=== PATIENT | female | born 1960 | race Caucasian/White ===

== ENCOUNTER 2020-08-22 07:47 | Outpatient (CLI) | payer BC, SELFPAY ==
--- NOTE | 2020-08-22 | ECHO_ITS ---
Patient Info Name: Rachel Montoya Age: 60 years : 1960 Gender: Female Ht: 58 in Wt: 180 lbs BSA: 1.87 m2 HR: 70 bpm BP: 130 / 71 mmHg Heart Rhythm: Sinus Rhythm Exam Date: 08/22/2020 8:05 AM Exam Location: [facility] Patient Status: Outpatient Admit Date: 08/22/2020 Staff Ordering Physician: Nasra, Cici ROBERTO Mattress Stripper: Kya Leblanc RDCS Attending Provider: Nasra, Cici ROBERTO Exam Type: CA echo doppler color flow Study Info Indications - Obinna Le Edema Complete two-dimensional, color flow and Doppler transthoracic echocardiogram is performed. Summary 1. Complete two-dimensional, color flow and Doppler transthoracic echocardiogram is performed. 2. Left ventricular chamber dimension is normal. 3. Left ventricular systolic function is normal, estimated at 65-70%. 4. There is mildly increased left ventricular wall thickness. 5. The left ventricular diastolic function is grade I diastolic dysfunction. 6. Left atrial chamber dimension is mildly enlarged. 7. There is mild mitral valve regurgitation. 8. There is mild tricuspid valve regurgitation. 9. There is mild pulmonic regurgitation. 10. The aortic valve is bicuspid. 11. The aortic valve is likely moderately stenotic. Gradients would indicate mild stenosis with a calculated valve area 0.9 cm squared. This is likely underestimated. Recommend LIEN for further anatomical evaluation and she will need serial echoes in the future to evaluate for progression of her aortic valvular disease. Left Ventricle Left ventricular chamber dimension is normal. Left ventricular systolic function is normal, estimated at 65-70%. There is mildly increased left ventricular wall thickness. The left ventricular diastolic function is grade I diastolic dysfunction. Right Ventricle Right ventricular chamber dimension is normal. Right ventricular systolic function is normal. Left Atria Left atrial chamber dimension is mildly enlarged. Right Atria Right atrial chamber dimension is normal. Atrial Septum Intact interatrial septum visualized by color flow imaging. Aortic Valve The aortic valve is bicuspid. There is trace aortic valve regurgitation. There is mild aortic valve calcification. The aortic valve is likely moderately stenotic. Gradients would indicate mild stenosis with a calculated valve area 0.9 cm squared. This is likely underestimated. Recommend LIEN for further anatomical evaluation and she will need serial echoes in the future to evaluate for progression of her aortic valvular disease. Pulmonic Valve The pulmonic valve is normal. There is no pulmonic valve stenosis. There is mild pulmonic regurgitation. Mitral Valve The mitral valve has normal leaflets. There is no mitral valve stenosis. There is mild mitral valve regurgitation. Tricuspid Valve The tricuspid valve leaflets are normal. There is no significant tricuspid valve stenosis. There is mild tricuspid valve regurgitation. No pulmonary hypertension, estimated pulmonary arterial systolic pressure is 32 mmHg. Pericardium/Pleural The pericardium appears normal. There is no pericardial effusion. Inferior Vena Cava Normal inferior vena cava with >50% collapse upon inspiration consistent with normal right atrial pressure, 10 mmHg. Aorta The aortic root size at the sinus of Valsalva is normal. The prox ascending aorta size is normal. Left Ventricular Outflow Tract
== END 2020-08-22 07:48 | disposition home or self-care (01) ==
PROVIDERS: PCP Registered Nurse; Visit Provider Registered Nurse
DX: R60.0 Localized edema (principal); I08.3 Combined rheumatic disorders of mitral, aortic and tricuspid valves
CPT/HCPCS: 93306

== ENCOUNTER 2021-09-06 10:19 | Emergency (ER) | payer BC, SELFPAY ==
[2021-09-06 10:28] VITALS: BP 131/72; PULSE 76; RESP 18; TEMP 36.7; O2SAT 98
--- NOTE | 2021-09-06 11:16 | PC.NURSE ---
Patient reports she was stung by a wasp yesterday morning while pulling the trash out. Patient reports she took Benadryl afterwards and was able to go to a craft class without difficulty. Since then she has increased swelling and erythema to her left middle index finger, also has swelling to her entire hand and up into her forearm.
--- NOTE | 2021-09-06 11:44 | ED.SKABFB ---
HPI - Skin/Abscess/Foreign Bdy General Chief complaint: Skin/Abscess/Foreign Body <Sylvia English PA-C - Last Filed: 09/06/21 12:22> Stated complaint: wasp sting yesterday. local reaction <Sylvia English PA-C - Last Filed: 09/06/21 12:22> Time Seen by Provider: 09/06/21 11:20 <SEBAS Skinner Last Filed: 09/06/21 12:22> Source: patient <SEBAS Skinner Last Filed: 09/06/21 12:22> Mode of arrival: ambulatory <SEBAS Skinner Last Filed: 09/06/21 12:22> Limitations: no limitations <SEBAS Skinner Last Filed: 09/06/21 12:22> History of Present Illness HPI narrative: This is a 61-year-old female that presents to the emergency department for left hand swelling and pain. Reports she was stung by a wasp yesterday morning on the left 2nd finger. She has history of allergic reactions to stings. She has been taking Benadryl with little relief. Reports when she woke up today she had worsening swelling and pain in the finger and hand which prompted her to be seen. Denies fevers. <Sylvia English PA-C - Last Filed: 09/06/21 12:22> Related Data Home medications: Home Medications Medication Instructions Recorded Confirmed cholecalciferol (vitamin D3) 25 1,000 unit PO DAILY 12/31/18 mcg (1,000 unit) capsule multivitamin 1 tablet PO DAILY 12/31/18 omeprazole 20 mg capsule,delayed 20 mg PO DAILY 12/31/18 release cannabidiol 100 mg/mL oral solution PO 01/03/19 ibuprofen 200 mg capsule 200 mg PO Q6H PRN 01/03/19 oxycodone-acetaminophen 5 mg-325 1 tablet PO Q6H PRN 01/03/19 mg tablet <SEBAS Skinner Last Filed: 09/06/21 12:22> Allergies/Adverse reactions: Allergies Allergy/AdvReac Type Severity Reaction Status Date / Time aspartame Allergy Mild SWELLING Verified 01/03/19 13:20 erythromycin base Allergy Mild TINNITUS Verified 01/03/19 13:20 tetracycline Allergy Mild Tinnitus Unverified 01/03/19 13:20 <Sylvia English PA-C - Last Filed: 09/06/21 12:22> Review of Systems Review of Systems: CONSTITUTIONAL: Denies fever SKIN: Reports rash and itching. <Sylvia English PA-C - Last Filed: 09/06/21 12:22> All systems reviewed & are unremarkable except as noted in HPI and below <Sylvia English PA-C - Last Filed: 09/06/21 12:22> PMFSH Past Medical History Medical History: Medical History (Updated 09/06/21 @ 12:16 by Sylvia English PA-C) History of cervical cancer History of hypertension Hyperlipemia <Sylvia English PA-C - Last Filed: 09/06/21 12:22> Surgical History Surgical History: Surgical History (Updated 01/03/19 @ 13:30 by Marimar Perdue [facility]) H/O tubal ligation History of root canal procedure Hx laparoscopic cholecystectomy [place] teeth removed <Sylvia English PA-C - Last Filed: 09/06/21 12:22> Social History Social History: Social History (Updated 12/31/18 @ 15:34 by Marimar Perdue [facility]) Smoking status: Never smoker Alcohol intake: current Alcohol use details: social <Sylvia English PA-C - Last Filed: 09/06/21 12:22> Exam Narrative: GENERAL: Well-appearing, well-nourished, and in no acute distress. HEAD: Normocephalic, atraumatic. EYES: EOMI. EXTREMITIES: Decreased active in the fingers of the left hand due to swelling. Mild to moderate swelling about the left hand, without erythema or warmth. No lymphangitic streaking. Left 2nd finger with a papular rash with some underlying purple discoloration of the skin. SKIN: Warm, dry, no rash. NEURO: No focal deficits. Alert and oriented x3. PSYCH: Normal mood and affect <Sylvia English PA-C - Last Filed: 09/06/21 12:22> Course DIRECTOR TRANSLATION/PA Physician Supervision For this encounter, I have reviewed the ISREAL documentation, treatment plan and medical decision making: I was available for consultation as needed. [] <Vinny Hunter, DO - Last Filed: 09/06/21 18:53> Vital Signs Vital signs: Vital Sig
[2021-09-06] MEDS: FAMOTIDINE 20 MG TABLET PO (11:58)
[2021-09-06] MEDS: LORATADINE 10 MG TABLET PO (11:58)
== END 2021-09-06 12:35 | disposition home or self-care (01) ==
PROVIDERS: Emergency Provider Emergency Medicine; PCP Registered Nurse
DX: T63.461A Toxic effect of venom of wasps, accidental (unintentional), initial encounter (principal); I10 Essential (primary) hypertension; E78.5 Hyperlipidemia, unspecified; Z85.41 Personal history of malignant neoplasm of cervix uteri
CPT/HCPCS: 96372; 99283; A9270; J1100